=== PATIENT | female | born 1995 | race African-American/Black ===

== ENCOUNTER 2016-12-06 18:58 | Observation (INO) | payer MEDICAID ==
[~2016-12-06] VITALS: Ht 172.7 cm; Wt 85.3 kg
[2016-12-06 19:21] VITALS: BP 127/81
[2016-12-06] MEDS ORDERED: NOMEDS XX (19:25)
[2016-12-06 20:05] LABS: URINE BILIRUBIN - DIPSTICK NEGATIVE (NEG); URINE BLOOD NEGATIVE (NEG)
[2016-12-07 08:10] VITALS: BP 116/60
--- NOTE | 2016-12-07 08:26 | ACUTE CARE PROGRESS NOTE (QUA) ---
Progress Notes Subjective Date 12/07/16 Time 0824 Note She was admitted overnight with contractions. She has not change her cervix. She did receive 1 dose of Brethine. She has received 1 dose of Celestone. She has not had any further episodes of contractions except for an occasional contraction. There no regular contractions. Patient/family reports: feeling better, no complaints Objective Findings Last VS-Temp:98.0 B/P:127/81 Pulse:87 Resp:18 SaO2: Last weight lbs:188 oz:0 K.276 Method:Floor Scales Exam General appearance: normal appearance, alert, awake, no acute distress Reviewed: vital signs, lab results Assessment/Plan Problem List 1. labor in third trimester Patient condition Improving, Stable Plan: continue current care This inpt stay is expected to cross 2 MNs from start of care No Comments: She seems to be doing fairly well. We will see how she does throughout the day. We will make sure she gets her second dose of Celestone later this evening. She is no longer having any contractions and she is not receiving any tocolytics. at [id number]
--- NOTE | 2016-12-07 17:13 | Discharge Summary ---
Discharge Summary Admission date: 12/06/16 Discharge date: 12/07/16 Discharge diagnoses: labor Clinical note: She is a 21-year-old 2 para 1 who was 34 weeks gestational age. She is complaining of contractions at home. As result of that she was admitted for toco lysis. Course in hospital: She had received 1 dose of Brethine and also received IM Celestone 12 mg. She has done well while hospitalized and has not had any further episodes of contractions. She has had no regular contractions. She has an occasional mild contraction. Her cervix is not changed. It has remained closed thick and high. She did have some greenish discharge from the vagina and as result of that was started on IV Flagyl. She declined any pain medicine. She is eating and drinking and ambulating. She is voiding well. Her nonstress test is reactive. She will receive her second dose of Celestone prior to being discharged this afternoon. Plans for ongoing care: She is discharged home to follow-up with me in approximately 1 week's time. Discharge medications She'll continue with her vitamins and iron. DC/follow-up instructions She was given the usual instructions and will return if she has any further episodes of contractions. Condition at discharge Stable and improved at [id number]
[2016-12-12] MEDS ORDERED: PRENA1 CHEW1 CT1 PO (19:48)
== END 2016-12-07 18:29 | disposition home or self-care (01) ==
LOC: OBOUT 18:58 → OB 19:00 → OBOUT 22:00 → OB 22:04
PROVIDERS: Obstetrics & Gynecology
DX: O60.03 Preterm labor without delivery, third trimester (principal); Z3A.34 34 weeks gestation of pregnancy
CPT/HCPCS: G0378

== ENCOUNTER 2016-12-17 20:53 | Outpatient (CLI) | payer MEDICAID ==
[~2016-12-17] VITALS: Ht 172.7 cm; Wt 85.7 kg
[~2016-12-17 20:53] MED LIST: NOMEDS XX; PRENA1 CHEW1 CT1 PO
[2016-12-17 21:07] VITALS: BP 125/69
== END 2016-12-17 22:25 | disposition home or self-care (01) ==
LOC: OBOUT 20:53 → OB 20:53 → OBOUT 22:25
DX: O36.8130 Decreased fetal movements, third trimester, not applicable or unspecified (principal); Z3A.35 35 weeks gestation of pregnancy

== ENCOUNTER 2017-06-23 09:49 | Emergency (ER) | payer MEDICAID ==
[~2017-06-23] VITALS: Ht 172.7 cm; Wt 88.0 kg
--- NOTE | 2017-06-23 10:10 | Emergency Room Report ---
History of Present Illness Time Seen by MD [id number] Presenting Problem in Triage Pt arrived:Walked Presenting Problem:PT REPORTS IS APPROX 8 WEEKS , REPORTS HAS BEEN HAVING INTERMITTENT VAGINAL BLEEDING, LOWER BACK AND PELVIC CRAMPING, PT REPORTS HAS PASSED SOME BLOOD CLOTS. PT REPORTS WAS SEEN IN AN ER YESTERDAY IN [facility] R/T SYMPTOMS, PT REPORTS WAS ADVISED TO BE RESEEN TODAY, STATES ATTEMPTED TO GET IN WITH HER OB DR. GUZMAN BUT APPOINTMENT WERE UNAVAILABLE. 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 N Clinical Suspician of Infection? N Mental Status: 1 - Regular (Normal Baseline) Sepsis Risk:Low Sepsis Risk Have you (or family members/close friends) recently traveled outside the [place]? N If Yes, where/when: Have you had exposure to infectious disease within the past month? N TB? Other? Specify: Patient is A0 female with two healthy living children, the youngest of which is five months old and delivered vaginally. The patient cannot remember when her LMP was, but was seen by her PCP Mario Rangel in [place] on 06/13/17 for "dizziness" and test in office was positive. The patient subsequently experienced cramping and passage of clots, no tissue, in the past two days. She was close to [facility] in [place], [place], yesterday and sought treatment at the [facility]. Blood work done as well as pelvic exam; US deferred at that time and patient instructed to see her LOG SCALER, Dr. Guzman, for follow up today. She was unable to get in to see him today and is requesting evaluation in the ED as she is continuing to have cramping and passage of clot. No vomiting or fever, she is having some dysuria. She was previously on OCP. She is not breast feeding. ALLERGIES Coded Allergies: Penicillins (-- 01/11/17) Home Medications Reported Medications No Known Home Medications History Medical History General CAD? No Angina: No [place]: No Hypertension? No Hyperlipidemia? No CHF? No DVT? No PE? No COPD? No Asthma? No Anemia? No GERD? No Gastric ulcers? No GI Bleed? No Hernia? No Thyroid Problems? No Hypothyroidism? No CVA? No Seizures? No Diabetes? No Renal Insuffiency? No End Stage Renal Disease? No UTI? No Stones? No BPH? No GB Disease: No Nephritic Syndrome? No Asplenia? No Hepatitis? No Sickle Cell Disease? No Arthritis? No Migraines? No Cataracts? No Glaucoma? No MRSA? No HIV? No TB? No Anxiety? No Depression? No Cancer? No More? 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 Physical Exam Vital Signs Vital Signs Date Time Temp Pulse Resp B/P Pulse O2 O2 Flow FiO2 Ox Delivery Rate 06/23 1142 72 18 144/77 99 06/23 0952 98.8 72 18 126/76 99 General Appearance normal appearance, WD/WN, no apparent distress Eye Exam - bilateral eye normal exam, bilateral eye PERRL, bilateral eye EOMI Neck normal inspection, non-tender, supple, full range of motion Respiratory Status Yes: trachea midline, chest symmetrical, non tender chest. No: respiratory distress, tender on palpation, use of accessory muscles, pain on inspiration, pain on expiration, productive cough, non productive cough. Lung Sounds bilateral: normal breath sounds, lungs clear. Cardiovascular normal exam, regular rate/rhythm, no peripheral edema, no gallop, no JVD, no murmur, no rub Gastrointestinal normal bowel sounds, normal exam, non tender, soft, no organomegaly, no pulsatile mass, no guarding, no rebound Back normal inspection, no CVA tenderness Extremities non-tender, normal range of motion, normal inspection, normal capillary refill, no calf tenderness Strength 5 Upper Ext (L), 5 Upper Ext (R), 5 Lower Ext (L), 5 Lower Ext (R) Nurse present during exam? Yes (Nita Kirk) Pelvic normal external exam, normal adnexa, no cerv. motion tender, no masses, vaginal bleeding (cervix closed thick high), small amount of blood in vault, no tissue, no clots, no active bleeding. No adnexal masses or tenderness. Neurologic alert, normal exam, no motor/sensory deficits, oriented x 3 Glascow Coma Scale Glascow Coma Scale Response Value EYE response: 4 Spontaneously 4 MOTOR response: 6 OBEYS 6 VERBAL response: 5 Oriented & Converses 5 Total 15 Skin intact, normal color, warm/dry Medical Decision Making LABS/Meds/Orders Pt receiving controlled substance in ED? No Results/Orders Laboratory Tests 06/23/17 1015: Beta HCG, Quant 1371.5 06/23/17 1015: Sodium 139, Potassium 3.9, Chloride 104, Carbon Dioxide 28, BUN 12, Creatinine 0.6, Estimated Creat Clear 208 H, Estimated GFR (MDRD) 127, Glucose 81, Calcium 8.6, Total Bilirubin 0.2, AST 13 L, ALT 16, Alkaline Phosphatase 75, Total Protein 7.5, Albumin 3.8, Globulin 3.7 H, Albumin/Globulin Ratio 1.0 L, WBC 5.1, RBC 3.92 L, Hgb 10.3 L, Hct 32.7 L, MCV 83.5, RDW 15.4, Plt Count 399, MPV 7.0 L, Gran % 62.2, Gran # 3.2, Lymphocytes % 30.4, Monocytes % 6.0, Eosinophils % 0.9, Basophils % 0.5, Lymphocytes # 1.6, Monocytes # 0.3, Eosinophils # 0.1, Basophils # 0.0, PUBS MCHC 31.5 L, MCH 26.3 L 06/23/17 1007: Ur Chlamydia DNA (PCR) Pending, Urine GC DNA Probe Pending, Urine Color YELLOW, Urine Appearance CLOUDY, Urine pH 7.0, Ur Specific [place] 1.020, Urine Protein NEGATIVE, Urine Ketones NEGATIVE, Urine Blood 3+ H, Urine Nitrate NEGATIVE, Urine Bilirubin NEGATIVE, Urine Urobilinogen 1.0, Ur Leukocyte Esterase NEGATIVE , Urine RBC 10-20, Urine WBC 10-20, Ur Squamous Epith Cells 10-20, Urine Bacteria 3+, Urine Glucose NEGATIVE Current Medication Orders Sig/Josiah Start time Last Medication Dose Route Stop Time Status Admin Sodium Chloride 10 ML PRN PRN 06/23 1015 AC IV 06/24 1002 Orders Procedure Date/time Status BETA-HCG, QUANT 06/23 1030 Complete CULTURE, URINE 06/23 1007 Active US TRANSVAGINAL PREG 06/23 1005 Active IV SALINE LOCK 06/23 1005 Active GEN NSG/PT REQ (NOT FOR MEDS!) 06/23 1005 Active WET PREP 06/23 1005 Complete PETTY PREP 06/23 1005 Complete URINALYSIS/COMPLETE 06/23 1005 Complete URINE 06/23 1005 Complete CHLAMYDIA/GC 06/23 1005 Active CBC WITH AUTO DIFF 06/23 1005 Complete CHEM 12 PROFILE 06/23 1005 Complete XRAY/CT/US XRAY/CT/US Ultrasound pelvis US Interpretation by reviewed by me (d/w tech) US results blighted ovum; good flow; small amount fluid cul de sac; small residual fluid in endometrium. Consult MD Physician Consult Time Called [address] Guzman: get out patient quant hcG in 72 hours, result to be called to him; patient to f/u in his office next week: too early to determine status of at this time. Progress ED Progress Notes Date 06/23/17 Time 1111 Comment records from [facility] ED: quant hcG was 1258 on 06/22/17. Departure Departure Time of Disposition 1204 Disposition DC Home or Self Care(routine) Clinical Impression Primary Impression: Vaginal bleeding before 22 weeks gestation Condition STABLE Referrals Sharath COLON,Kris Cage Patient Instructions Threatened Additional Instructions Get blood drawn on 06/26/17; see Dr. Guzman for follow up next week; call for appointment; unable to determine this early on how the will vehicle return associate as it is very early in terms of a reliable ultrasound result; he will repeat an US next week. Prescriptions Current Visit Scripts No Known Home Medications ED Critical Care Critical Care No at 1210
--- NOTE | 2017-06-23 10:10 | Emergency Room Report ---
History of Present Illness Time Seen by MD [id number] Presenting Problem in Triage Pt arrived:Walked Presenting Problem:PT REPORTS IS APPROX 8 WEEKS , REPORTS HAS BEEN HAVING INTERMITTENT VAGINAL BLEEDING, LOWER BACK AND PELVIC CRAMPING, PT REPORTS HAS PASSED SOME BLOOD CLOTS. PT REPORTS WAS SEEN IN AN ER YESTERDAY IN [facility] R/T SYMPTOMS, PT REPORTS WAS ADVISED TO BE RESEEN TODAY, STATES ATTEMPTED TO GET IN WITH HER OB DR. GUZMAN BUT APPOINTMENT WERE UNAVAILABLE. 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 N Clinical Suspician of Infection? N Mental Status: 1 - Regular (Normal Baseline) Sepsis Risk:Low Sepsis Risk Have you (or family members/close friends) recently traveled outside the [place]? N If Yes, where/when: Have you had exposure to infectious disease within the past month? N TB? Other? Specify: Patient is A0 female with two healthy living children, the youngest of which is five months old and delivered vaginally. The patient cannot remember when her LMP was, but was seen by her PCP Mario Rangel in [place] on 06/13/17 for "dizziness" and test in office was positive. The patient subsequently experienced cramping and passage of clots, no tissue, in the past two days. She was close to [facility] in [place], [place], yesterday and sought treatment at the [facility]. Blood work done as well as pelvic exam; US deferred at that time and patient instructed to see her BULK FILLER, Dr. Guzman, for follow up today. She was unable to get in to see him today and is requesting evaluation in the ED as she is continuing to have cramping and passage of clot. No vomiting or fever, she is having some dysuria. She was previously on OCP. She is not breast feeding. ALLERGIES Coded Allergies: Penicillins (-- 01/11/17) Home Medications Reported Medications No Known Home Medications History Medical History General CAD? No Angina: No PR: No Hypertension? No Hyperlipidemia? No CHF? No DVT? No PE? No COPD? No Asthma? No Anemia? No GERD? No Gastric ulcers? No GI Bleed? No Hernia? No Thyroid Problems? No Hypothyroidism? No CVA? No Seizures? No Diabetes? No Renal Insuffiency? No End Stage Renal Disease? No UTI? No Stones? No BPH? No GB Disease: No Nephritic Syndrome? No Asplenia? No Hepatitis? No Sickle Cell Disease? No Arthritis? No Migraines? No Cataracts? No Glaucoma? No MRSA? No HIV? No TB? No Anxiety? No Depression? No Cancer? No More? 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 Physical Exam Vital Signs Vital Signs Date Time Temp Pulse Resp B/P Pulse O2 O2 Flow FiO2 Ox Delivery Rate 06/23 1142 72 18 144/77 99 06/23 0952 98.8 72 18 126/76 99 General Appearance normal appearance, WD/WN, no apparent distress Eye Exam - bilateral eye normal exam, bilateral eye PERRL, bilateral eye EOMI Neck normal inspection, non-tender, supple, full range of motion Respiratory Status Yes: trachea midline, chest symmetrical, non tender chest. No: respiratory distress, tender on palpation, use of accessory muscles, pain on inspiration, pain on expiration, productive cough, non productive cough. Lung Sounds bilateral: normal breath sounds, lungs clear. Cardiovascular normal exam, regular rate/rhythm, no peripheral edema, no gallop, no JVD, no murmur, no rub Gastrointestinal normal bowel sounds, normal exam, non tender, soft, no organomegaly, no pulsatile mass, no guarding, no rebound Back normal inspection, no CVA tenderness Extremities non-tender, normal range of motion, normal inspection, normal capillary refill, no calf tenderness Strength 5 Upper Ext (L), 5 Upper Ext (R), 5 Lower Ext (L), 5 Lower Ext (R) Nurse present during exam? Yes (Nita Kirk) Pelvic normal external exam, normal adnexa, no cerv. motion tender, no masses, vaginal bleeding (cervix closed thick high), small amount of blood in vault, no tissue, no clots, no active bleeding. No adnexal masses or tenderness. Neurologic alert, normal exam, no motor/sensory deficits, oriented x 3 Glascow Coma Scale Glascow Coma Scale Response Value EYE response: 4 Spontaneously 4 MOTOR response: 6 OBEYS 6 VERBAL response: 5 Oriented & Converses 5 Total 15 Skin intact, normal color, warm/dry Medical Decision Making LABS/Meds/Orders Pt receiving controlled substance in ED? No Results/Orders Laboratory Tests 06/23/17 1015: Beta HCG, Quant 1371.5 06/23/17 1015: Sodium 139, Potassium 3.9, Chloride 104, Carbon Dioxide 28, BUN 12, Creatinine 0.6, Estimated Creat Clear 208 H, Estimated GFR (MDRD) 127, Glucose 81, Calcium 8.6, Total Bilirubin 0.2, AST 13 L, ALT 16, Alkaline Phosphatase 75, Total Protein 7.5, Albumin 3.8, Globulin 3.7 H, Albumin/Globulin Ratio 1.0 L, WBC 5.1, RBC 3.92 L, Hgb 10.3 L, Hct 32.7 L, MCV 83.5, RDW 15.4, Plt Count 399, MPV 7.0 L, Gran % 62.2, Gran # 3.2, Lymphocytes % 30.4, Monocytes % 6.0, Eosinophils % 0.9, Basophils % 0.5, Lymphocytes # 1.6, Monocytes # 0.3, Eosinophils # 0.1, Basophils # 0.0, PUBS MCHC 31.5 L, MCH 26.3 L 06/23/17 1007: Ur Chlamydia DNA (PCR) Pending, Urine GC DNA Probe Pending, Urine Color YELLOW, Urine Appearance CLOUDY, Urine pH 7.0, Ur Specific [place] 1.020, Urine Protein NEGATIVE, Urine Ketones NEGATIVE, Urine Blood 3+ H, Urine Nitrate NEGATIVE, Urine Bilirubin NEGATIVE, Urine Urobilinogen 1.0, Ur Leukocyte Esterase NEGATIVE , Urine RBC 10-20, Urine WBC 10-20, Ur Squamous Epith Cells 10-20, Urine Bacteria 3+, Urine Glucose NEGATIVE Current Medication Orders Sig/Josiah Start time Last Medication Dose Route Stop Time Status Admin Sodium Chloride 10 ML PRN PRN 06/23 1015 AC IV 06/24 1002 Orders Procedure Date/time Status BETA-HCG, QUANT 06/23 1030 Complete CULTURE, URINE 06/23 1007 Active US TRANSVAGINAL PREG 06/23 1005 Active IV SALINE LOCK 06/23 1005 Active GEN NSG/PT REQ (NOT FOR MEDS!) 06/23 1005 Active WET PREP 06/23 1005 Complete PETTY PREP 06/23 1005 Complete URINALYSIS/COMPLETE 06/23 1005 Complete URINE 06/23 1005 Complete CHLAMYDIA/GC 06/23 1005 Active CBC WITH AUTO DIFF 06/23 1005 Complete CHEM 12 PROFILE 06/23 1005 Complete XRAY/CT/US XRAY/CT/US Ultrasound pelvis US Interpretation by reviewed by me (d/w tech) US results blighted ovum; good flow; small amount fluid cul de sac; small residual fluid in endometrium. Consult MD Physician Consult Time Called [address] Guzman: get out patient quant hcG in 72 hours, result to be called to him; patient to f/u in his office next week: too early to determine status of at this time. Progress ED Progress Notes Date 06/23/17 Time 1111 Comment records from [facility] ED: quant hcG was 1258 on 06/22/17. Departure Departure Time of Disposition 1204 Disposition DC Home or Self Care(routine) Clinical Impression Primary Impression: Vaginal bleeding before 22 weeks gestation Condition STABLE Referrals Sharath COLON,Kris Cage Patient Instructions Threatened Additional Instructions Get blood drawn on 06/26/17; see Dr. 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 Prescriptions Current Visit Scripts No Known Home Medications ED Critical Care Critical Care No at 1210
[2017-06-23 10:14] LABS: URINE BILIRUBIN - DIPSTICK NEGATIVE (NEG); URINE BLOOD 3+ (NEG)
[2017-06-23 10:28] LABS: LYMPH # 1.6 K/mm3 (0.7-4.5); LYMPH % 30.4 % (10-50.0)
[2017-06-23 10:37] LABS: HEMOGLOBIN 10.3 g/dL (12.2-16.2)
--- NOTE | 2017-06-23 12:17 | RADIOLOGY REPORT PS360 ---
US TRANSVAGINAL PREG HISTORY: Vaginal bleeding, positive beta hCG 8 weeks preg with two d hx VB, diffuse cramping ORDERING PHYSICIAN: Susie Wilson MD PATIENT AGE: 21 years COMPARISON: None FINDINGS: Endometrium is thickened. No gestational sac is identified.. The left ovary is 2 x 2.3 cm in the right ovary is 1.7 x 1.6 cm. There are small follicles present. Small amount fluid is present in the cul-de-sac. IMPRESSION: 1. No intrauterine gestational sac apparent. Cannot confirm viability. Recommend correlation with serial beta-hCGs and perhaps follow-up ultrasound. A very early gestation is a consideration. Spontaneous and neck topic not excluded based on this single study.
[2017-06-23 12:23] VITALS: BP 141/82
[2017-06-26 16:36] LABS: Neisseria gonorrhoeae, NAA Negative (Negative)
== END 2017-06-23 12:23 | disposition home or self-care (01) ==
LOC: ER 09:49
PROVIDERS: Emergency Medicine
DX: O20.9 Hemorrhage in early pregnancy, unspecified (principal); Z3A.08 8 weeks gestation of pregnancy